=== PATIENT | female | born 1990 | race Caucasian/White ===

== ENCOUNTER 2017-02-18 17:00 | Inpatient (IN) ==
[2017-02-18] MEDS ORDERED: ONDANSETRON 4 MG/2 ML VIAL IV PRN (17:21)
[2017-02-18] MEDS ORDERED: MEPERIDINE 50 MG/1 ML VIAL IV PRN (17:21)
[2017-02-18] MEDS ORDERED: BUTORPHANOL 2 MG/ML VIAL IV PRN (17:21)
[2017-02-18] MEDS ORDERED: OXYTOCIN/LR 20 UNIT/1,000 ML BAG IV SCH (17:30)
[2017-02-18] MEDS: LACTATED RINGERS 1,000 ML IV SCH ×3 (17:40→21:00)
[2017-02-18 17:46] LABS: Basophils % 0.3 % (0.0-0.8); Eosinophils # 0.3 10*3/uL (0.0-0.87); Eosinophils % 2.4 % (0.00-10.9); Hematocrit 32.7 VOL% (35.7-47.0); Hemoglobin 10.4 GM/DL (12.0-16.0); Immature Granulocytes Absolute 0.11 #; Lymphocytes # 1.5 10*3/uL (1.4-4.0); Lymphocytes % 13.2 % (21.3-54.2); Mean Corpuscular HGB Conc 31.8 GM/DL (32-36); Mean Corpuscular Hemoglobin 25 PG (27-34); Mean Corpuscular Volume 78.8 FL (87-102); Mean Platelet Volume 12.4 FL (9.6-12.0); Monocytes # 0.6 10*3/uL (0.11-0.8); Monocytes % 5.2 % (1.7-12.7); Neutrophils % 77.9 % (38.7-73.9); Platelet Count 235 T/CUMM (130-400); Red Blood Count 4.15 MC/CUMM (3.8-5.5); Red Cell Distribution Width 13.6 % (9.3-17.3); White Blood Count 11.5 T/CUMM (4-12)
[2017-02-18] MEDS ORDERED: TRANEXAMIC ACID 1,000 MG/10 ML VIAL IV ONE (18:55)
[2017-02-18] MEDS ORDERED: FAMOTIDINE 20 MG/2 ML VIAL IV ONE (19:17)
[2017-02-18] MEDS ORDERED: CITRIC ACID/SODIUM CITRATE 30 ML UDCUP PO ONE (19:17)
[2017-02-18] MEDS ORDERED: fentaNYL 2 MCG/ROPIV 0.2% EPID 150 ML EPIDURAL SCH (19:18)
[2017-02-18] MEDS ORDERED: ePHEDrine 50 MG/ML AMP ONE (19:30)
[2017-02-18] MEDS ORDERED: ePHEDrine 50 MG/ML AMP IV PRN (20:00)
[2017-02-18] MEDS ORDERED: ONDANSETRON 4 MG/2 ML VIAL IV ONE (20:35)
[2017-02-18 21:34] LABS: Apearance,Urine CLEAR (Clear); Bilirubin,Urine Negative (Negative); Blood, Urine Small mg/dL (Negative); Glucose,Urine (UA) Negative (Negative); Hyaline Casts,Urine 2 /LPF (0-3); Ketones,Urine 80 mg/dL (Negative); Mucus,Urine Many /LPF (Occasional); Nitrite,Urine Negative (Negative); Protein,Urine 30 MG/DL; RBC,Urine 8 /HPF (0-4); Squamous Epithelial Cell,Urine Occasional /HPF (0-10); Urine Color Yellow (Yellow); Urine Specific Gravity 1.026 (1.001-1.035); WBC,Urine <1 /HPF (0-6)
[2017-02-19] MEDS ORDERED: miSOPROStol 200 MCG TABLET ONE (00:55)
[2017-02-19] MEDS ORDERED: LIDOCAINE 1% 50 ML VIAL ONE (07:47)
[2017-02-19] MEDS ORDERED: ACETAMINOPHEN 500 MG TABLET PO ONE (08:22)
[2017-02-19] MEDS ORDERED: RHO(D) IMMUNE GLOBULIN 300 MCG SYRINGE IM ONE (10:01)
[2017-02-19] MEDS ORDERED: ACETAMINOPHEN 325 MG TABLET PO PRN (10:01)
[2017-02-19] MEDS ORDERED: ONDANSETRON 4 MG/2 ML VIAL IV PRN (10:01)
[2017-02-19] MEDS ORDERED: WITCH HAZEL PADS 100/JAR TOP PRN (10:01)
[2017-02-19] MEDS ORDERED: HYDROCORTISONE 2.5% RECTAL CREAM 30 GM TUBE TOP PRN (10:01)
[2017-02-19] MEDS ORDERED: OXYTOCIN/LR 20 UNIT/1,000 ML BAG IV ONE (10:01)
[2017-02-19] MEDS ORDERED: BENZOCAINE 20%/MENTHOL 0.5% SPRAY 56 GM CAN TOP PRN (10:01)
[2017-02-19] MEDS ORDERED: oxyCODONE/ACETAMINOPHEN 5-325 MG TABLET PO PRN ×2 (10:01)
[2017-02-19] MEDS ORDERED: MEASLES/MUMPS/RUBELLA VACCINE 0.5 ML VIAL SUBCUT ONE (10:01)
[2017-02-19] MEDS ORDERED: LANOLIN 50% CREAM 0.3 OZ TUBE TOP PRN (10:01)
[2017-02-19] MEDS ORDERED: BISACODYL 10 MG SUPP RECTAL PRN (10:01)
[2017-02-19] MEDS ORDERED: DIPH/TET/ACEL PERT BOOSTER VACCINE 0.5 ML VIAL IM ONE (10:01)
[2017-02-19] MEDS: DOCUSATE SODIUM 100 MG CAPSULE PO SCH (21:14)
[2017-02-20 06:03] LABS: Basophils # 0.1 10*3/uL (0.0-0.2); Basophils % 0.6 % (0.0-0.8); Eosinophils # 0.3 10*3/uL (0.0-0.87); Eosinophils % 3.3 % (0.00-10.9); Hematocrit 23.6 VOL% (35.7-47.0); Immature Granulocytes % 1.3 %; Immature Granulocytes Absolute 0.13 #; Lymphocytes % 20.7 % (21.3-54.2); Mean Corpuscular HGB Conc 32.6 GM/DL (32-36); Mean Corpuscular Hemoglobin 25 PG (27-34); Mean Corpuscular Volume 77.4 FL (87-102); Mean Platelet Volume 12.8 FL (9.6-12.0); Monocytes # 0.6 10*3/uL (0.11-0.8); Monocytes % 5.7 % (1.7-12.7); Neutrophils # 6.7 10*3/uL (1.4-7.4); Neutrophils % 68.4 % (38.7-73.9); Red Cell Distribution Width 13.7 % (9.3-17.3); White Blood Count 9.7 T/CUMM (4-12)
[2017-02-20] MEDS: IBUPROFEN 800 MG TABLET PO PRN (06:08)
[2017-02-20 06:27] LABS: Hemoglobin 7.7 GM/DL (12.0-16.0); Platelet Count 155 T/CUMM (130-400); Red Blood Count 3.05 MC/CUMM (3.8-5.5)
[2017-02-20] MEDS: FERROUS SULFATE 325 MG TABLET PO SCH ×2 (08:37→21:35)
[2017-02-20] MEDS: DOCUSATE SODIUM 100 MG CAPSULE PO SCH ×2 (08:37→21:35)
[2017-02-21] MEDS: IBUPROFEN 800 MG TABLET PO PRN (00:55)
[2017-02-21 06:44] LABS: Hematocrit 25.2 VOL% (35.7-47.0); Hemoglobin 8.1 GM/DL (12.0-16.0)
[2017-02-21 09:18] VITALS: BP 117/75
[2017-02-21] MEDS: DOCUSATE SODIUM 100 MG CAPSULE PO SCH (09:43)
[2017-02-21] MEDS: FERROUS SULFATE 325 MG TABLET PO SCH (09:43)
== END 2017-02-21 12:30 | disposition home or self-care (01) | DRG 775 ==
LOC: N.LDOUT 17:00 → N.LD 17:03 → N.OB 02-19 11:08
PROVIDERS: ADMIT Obstetrics & Gynecology; ATTEND Obstetrics & Gynecology